=== PATIENT | female | born 1980 | race Caucasian/White ===

== ENCOUNTER 2016-10-31 10:48 | Emergency (ER) | payer BC, OTHER ==
[2016-10-31 11:03] VITALS: BP 119/60
--- NOTE | 2016-10-31 11:30 | UC ---
Back Pain HPI - History of Current Complaint Chief Complaint: UCBackPain Stated Complaint: BACK PAIN Time Seen by Provider: 10/31/16 11:21 Hx Last Menstrual Period: 10/28/16 ?: No Onset/Duration: Gradual Onset - on tuesday dull aching, Worse Since - Tuesday with back tightening up and has gotten progressively worse Severity Initially: Mild Severity Currently: Severe Character: Sharp - with certain movement., Dull, Aching Aggravating: Movement Alleviating: Rest Associated Signs And Symptoms: Negative: Fever, Bladder Incontinence, Bowel Incontinence - Risk Factors AAA Risk Factors: Negative TAD Risk Factors: Negative Cauda Equina Risk Factors: Negative Epidural Abscess Risk Factors: Negative - Allergies/Home Medications Allergies/Adverse Reactions: Allergies Allergy/AdvReac Type Severity Reaction Status Date / Time No Known Allergies Allergy Verified 10/31/16 10:55 Home Medications: Home Medications Ibuprofen TAB* [Advil TAB*] 800 mg PO Q8H PRN 10/31/16 [History Confirmed ] PMH/Surg Hx/FS Hx/Imm Hx Previously Healthy: Yes Other History Of: Negative For: HIV - Surgical History Surgical History: Yes Surgery Procedure, Year, and Place: cyst removal right wrist - Family History Known Family History: Positive: Hypertension, Diabetes Negative: Cardiac Disease - Social History Occupation: Employed Full-time Lives: With Family Alcohol Use: None Substance Use Type: None Smoking Status (MU): Never Smoked Tobacco Have You Smoked in the Last Year: No Review of Systems Musculoskeletal: Arthralgia - low back pain All Other Systems Reviewed And Are Negative: Yes Physical Exam Triage Information Reviewed: Yes Appearance: Well-Appearing, Pain Distress - mild, worse with movement, Obese Vital Signs: Initial Vital Signs Temp 98.3 F 10/31/16 10:56 Pulse 69 10/31/16 10:56 Resp 16 10/31/16 10:56 BP 119/60 10/31/16 10:56 Pulse Ox 100 10/31/16 10:56 Vital Signs Reviewed: Yes Eyes: Positive: Conjunctiva Clear Neck exam: Normal Respiratory: Positive: Lungs clear Cardiovascular Exam: Normal Musculoskeletal: Positive: Other: - Tenderness left SI, Neurological Exam: Normal - Normal lower extremity sensation, DTR 2+ patellar Psychological Exam: Normal Skin Exam: Normal Back Pain Course/Dx - Differential Dx/Diagnosis Differential Diagnosis/HQI/PQRI: Arthritis, Herniated Disc, Strain Provider Diagnoses: Acute sacroiliitis Discharge - Discharge Plan Condition: Stable Disposition: HOME Prescriptions: Cyclobenzaprine TAB* [Flexeril 10 MG TAB*] 10 mg PO TID PRN #14 tab PRN Reason: Pain - Back Patient Education Materials: Sacroiliitis (ED), Cyclobenzaprine (By mouth)
== END 2016-10-31 11:46 | disposition home or self-care (01) ==
LOC: UCCORT 10:48
DX: M46.1 Sacroiliitis, not elsewhere classified (principal)
CPT/HCPCS: 99202; G0463